=== PATIENT | male | born 1980 | race African-American/Black ===

== ENCOUNTER 2021-10-16 13:47 | Emergency (ER) | payer SELFPAY | END 2021-10-16 14:51 | disposition home or self-care (01) | LOC: CSHERS 13:47 | DX: K64.4 Residual hemorrhoidal skin tags (principal); F17.210 Nicotine dependence, cigarettes, uncomplicated | CPT/HCPCS: 99283 ==

== ENCOUNTER 2021-10-18 17:29 | Emergency (ER) | payer SELFPAY | END 2021-10-18 18:15 | disposition home or self-care (01) | LOC: CSHERS 17:29 | DX: K64.4 Residual hemorrhoidal skin tags (principal); F17.210 Nicotine dependence, cigarettes, uncomplicated | CPT/HCPCS: 99282 ==